=== PATIENT | female | born 1995 | race Caucasian/White ===

== ENCOUNTER 2016-10-13 11:46 | Emergency (ER) | payer OTHER ==
[~2016-10-13] VITALS: Ht 160 cm; Wt 60.7 kg
[2016-10-13 11:57] VITALS: TEMP 37.1; Ht 160 cm; Wt 60.7 kg
[2016-10-13 13:43] LABS: BASO % 0.3 %; BASO ABS # 0.02 K/uL (0-0.2); COMPLETE YES; EOS % 3.9 %; HEMATOCRIT 37.3 % (37-47); IG% 0.2 %; LYMPH % 25.3 %; LYMPH ABS # 1.49 K/uL (1.2-3.4); MEAN CELL VOLUME 81.8 fL (80-100); MEAN CORPUSCULAR HEMOGLOBIN 28.7 pg (25-34); MEAN CORPUSCULAR HGB CONC 35.1 g/dl (32-36); MEAN PLATELET VOLUME 10.7 fL (7.4-10.4); MONO % 15.6 %; NEUT % 54.7 %; PLATELET COUNT 231 K/uL (130-400); RED BLOOD COUNT 4.56 M/uL (4.2-5.4); WHITE BLOOD COUNT 5.89 K/uL (4.8-10.8)
--- NOTE | 2016-10-13 13:44 | DIAGNOSTIC IMAGING REPORT ---
SINGLE VIEW CHEST CLINICAL HISTORY: Cough. Flu. FINDINGS: An AP, portable, upright chest radiograph is obtained. No prior studies are available for comparison at the time of dictation. The cardiomediastinal silhouette is unremarkable. The lungs and pleural spaces are clear. No pneumothorax is seen. The bony thorax is grossly intact. IMPRESSION: No active disease in the chest. Electronically signed by: Dallas Castellanos M.D. 10/13/2016 1:42 PM Dictated Date/Time: 10/13/2016 1:42 PM
[2016-10-13 14:05] LABS: BUN/CREATININE RATIO 9.8 (10-20); CALCIUM 9.1 mg/dl (8.5-10.1); CREATININE 0.73 mg/dl (0.60-1.20); POTASSIUM 4.1 mmol/L (3.5-5.1)
[2016-10-13] MEDS ORDERED: ACET-1256 PO (14:19)
[2016-10-13] MEDS ORDERED: AFRINWC (14:19)
[2016-10-13] MEDS ORDERED: KETOROLAC TROMETHAMINE 30 MG/ML VIAL IV STA (14:43)
[2016-10-13 14:44] VITALS: BP 107/64; PULSE 67; O2SAT 100
--- NOTE | 2016-10-13 20:41 | EMERGENCY ROOM VISIT NOTE ---
History Report prepared by Nasreenibrickey: Jose F Parsons Under the Supervision of: Dr. Woodrow Sosa D.O. First contact with patient: 13:04 Chief Complaint: FLU LIKE SX Stated Complaint: FLU, HEADACHE,BURN IN THROAT AND NOSE History of Present Illness The patient is a 21 year old female who presents to the Emergency Room with complaints of a worsening headache for the past two days. The patient has had the headache all week, which became severe two days ago. She also complains of fatigue, rhinorrhea, sore throat, and nausea. Patient denies change in vision, fevers, cough, chest pain, shortness of breath, vomiting, diarrhea, pain with urination, and melena. The patient is up to date with her immunizations. Over the counter medications have not helped her symptoms. She denies an specific sick contacts, but is a college student at [employer]. The patient was seen by [email or web address] twice for these symptoms, and was told to come to the ED if her symptoms worsen. LNMP was last week. She is diagnosed at [facility] with influenza. Source of History: patient Onset: two days Position: head Symptom Intensity: severe Timing: worsening Associated Symptoms: + fatigue, + nausea, + sorethroat, No SOB, No chest pain, No cough, No diarrhea, No fevers, No melena, No urinary symptoms, No vomiting Review of Systems See HPI for pertinent positives & negatives. A total of 10 systems reviewed and were otherwise negative. Past Medical & Surgical Medical Problems: (1) Closed head injury (2) Pharyngitis Family History Patient reports no known family medical history. Social History Smoking Status: Never Smoker Marital Status: single Occupation Status: student Current/Historical Medications Scheduled Acetaminophen (Tylenol), 500 MG PO DIRECTED Oxymetazoline Hcl (Afrin 0.05% Nasal [place]), 2 SPRAYS NA DIRECTED Allergies Coded Allergies: No Known Allergies (Unverified , 10/13/16) Physical Exam Vital Signs Date Time Temp Pulse Resp B/P Pulse Ox O2 Delivery O2 Flow Rate FiO2 10/13/16 14:44 67 16 107/64 100 Room Air 10/13/16 11:57 37.1 88 16 98 Room Air Physical Exam GENERAL: Sitting up in bed, alert, well appearing, well nourished, no distress, non-toxic EYE EXAM: normal conjunctiva, PERRL and EOM's grossly intact OROPHARYNX: no exudate, no erythema, lips, buccal mucosa, and tongue normal and mucous membranes are moist NECK: supple, no nuchal rigidity, no adenopathy, non-tender, full range of motion. LUNGS: Clear to auscultation. Normal chest wall mechanics HEART: no murmurs, S1 normal and S2 normal ABDOMEN: abdomen soft, non-tender, normo-active bowel sounds, no masses, no rebound or guarding. BACK: Back is symmetrical on inspection and there is no deformity, no midline tenderness, no CVA tenderness. SKIN: no rashes and no bruising UPPER EXTREMITIES: upper extremities are grossly normal. LOWER EXTREMITIES: No pitting edema. NEURO EXAM: Normal sensorium, cranial nerves II-XII grossly intact, normal speech, no gross weakness of arms, no gross weakness of legs. Gross sensation intact. Medical Decision & Procedures ER Provider Diagnostic Interpretation: Xray results per the radiologist and my interpretation. SINGLE VIEW CHEST CLINICAL HISTORY: Cough. Flu. FINDINGS: An AP, portable, upright chest radiograph is obtained. No prior studies are available for comparison at the time of dictation. The cardiomediastinal silhouette is unremarkable. The lungs and pleural spaces are clear. No pneumothorax is seen. The bony thorax is grossly intact. IMPRESSION: No active disease in the chest. Electronically signed by: Dallas Castellanos M.D. 10/13/2016 1:42 PM Dictated Date/Time: 10/13/2016 1:42 PM Laboratory Results 10/13/16 13:30 Red Blood Count 4.56, Mean Corpuscular Volume 81.8, Mean Corpuscular Hemoglobin 28.7, Mean Corpuscular Hemoglobin Concent 35.1, Mean Platelet Volume 10.7, Neutrophils (%) (Auto) 54.7, Lymphocytes (%) (Auto) 25.3, Monocytes (%) (Auto) 15.6, Eosinophils (%) (Auto) 3.9, Basophils (%) (Auto) 0.3, Neutrophils # (Auto ) 3.22, Lymphocytes # (Auto) 1.49, Monocytes # (Auto) 0.92, Eosinophils # (Auto ) 0.23, Basophils # (Auto) 0.02 10/13/16 13:30 Test 10/13/16 13:30 White Blood Count 5.89 K/uL (4.8-10.8) Red Blood Count 4.56 M/uL (4.2-5.4) Hemoglobin 13.1 g/dL (12.0-16.0) Hematocrit 37.3 % (37-47) Mean Corpuscular Volume 81.8 fL (80-100) Mean Corpuscular Hemoglobin 28.7 pg (25-34) Mean Corpuscular Hemoglobin Concent 35.1 g/dl (32-36) Platelet Count 231 K/uL (130-400) Mean Platelet Volume 10.7 fL (7.4-10.4) Neutrophils (%) (Auto) 54.7 % Lymphocytes (%) (Auto) 25.3 % Monocytes (%) (Auto) 15.6 % Eosinophils (%) (Auto) 3.9 % Basophils (%) (Auto) 0.3 % Neutrophils # (Auto) 3.22 K/uL (1.4-6.5) Lymphocytes # (Auto) 1.49 K/uL (1.2-3.4) Monocytes # (Auto) 0.92 K/uL (0.11-0.59) Eosinophils # (Auto) 0.23 K/uL (0-0.5) Basophils # (Auto) 0.02 K/uL (0-0.2) RDW Standard Deviation 39.4 fL (36.4-46.3) RDW Coefficient of Variation 13.1 % (11.5-14.5) Immature Granulocyte % (Auto) 0.2 % Immature Granulocyte # (Auto) 0.01 K/uL (0.00-0.02) Anion Gap 11.0 mmol/L (3-11) Est Creatinine Clear Calc Drug Dose 100.8 ml/min Estimated GFR () 136.5 Estimated GFR (Non- 117.7 BUN/Creatinine Ratio 9.8 (10-20) Calcium Level 9.1 mg/dl (8.5-10.1) Influenza Type A Antigen Neg for Influ A (NEG) Influenza Type B Antigen Neg for Influ B (NEG) Laboratory results per my review. Medications Administered Medications (Trade) Dose Ordered Sig/Shanthi Route Start Time Stop Time Status Last Admin Dose Admin Ketorolac Tromethamine (Toradol Inj) 30 mg NOW STAT IV 10/13/16 14:43 10/13/16 14:44 DC 10/13/16 14:55 30 MG ED Course ED COURSE: Vital signs were reviewed and were normal. The patients medical record was reviewed The above diagnostic studies were performed and reviewed. ED treatments and interventions as stated above. 1311: The patient was evaluated in room C10. A complete history and physical examination was performed. 1443: Toradol 30 mg IV. 1500: Upon reevaluation, the patient is doing well.I discussed my findings with the patient and she understands and agrees with the treatment plan. Based on the patients age, coexisting illnesses, exam and lab findings the decision to treat as an outpatient was made. The patient remained stable while under my care. The patient appeared well at the time of discharge. Medical Decision Differential diagnosis: Etiologies such as viral syndrome, otitis, pharyngitis, pneumonia, influenza, meningitis, urinary tract infection, sepsis, bacteremia, as well as others were entertained. Patient is a 21-year-old female who presents the ER for severe headache associated with a runny nose yellow productive cough and a sore throat. This is been present for the past 48 hours. She was seen at [facility] and diagnosed with influenza. She presents today as her symptoms have not resolved. Chest x- ray was unremarkable. Vitals are stable. No signs of meningitis or encephalitis on exam. No nuchal rigidity. Labs show unremarkable CBC and BMP. Patient was given IV Toradol. Rapid influenza A and B were negative. She is discharged follow-up with her PCP with a viral URI. Discussed with Pt concerning signs and symptoms to watch out for. Pt was instructed to follow up with their PCP and discussed with the patient their option to return to the ED at anytime for persistent or worsening symptoms. The appropriate anticipatory guidance and out-patient management, including indications for return to the emergency department, were explained at length to the patient and understood. Impression Primary Impression: Upper respiratory infection Scribe Attestation The scribe's documentation has been prepared under my direction and personally reviewed by me in its entirety. I confirm that the note above accurately reflects all work, treatment, procedures, and medical decision making performed by me. Departure Information Dispostion Home / Self-Care Referrals No Doctor, Assigned (PCP) Forms HOME CARE DOCUMENTATION FORM, IMPORTANT VISIT INFORMATION Patient Instructions ED URI Viral, My [facility] Additional Instructions Please follow up with your primary care doctor or if you are a student [facility] with in the next 24 hours. Any worsening of your symptoms, please return to the ED immediately. This includes persistent fevers greater than 100.4, stiff neck, confusion, trouble breathing, or any other concerning signs or symptoms from your stand point. Please take Motrin Tylenol as need for pain. Problem Qualifiers Primary Impression: Upper respiratory infection URI type: unspecified viral URI Qualified Codes: J06.9 - Acute upper respiratory infection, unspecified; B97.89 - Other viral agents as the cause of diseases classified elsewhere
== END 2016-10-13 15:29 | disposition home or self-care (01) ==
LOC: C.EDB 11:47 → C.EDC 15:29
DX: J06.9 Acute upper respiratory infection, unspecified (principal); B97.89 Other viral agents as the cause of diseases classified elsewhere

== ENCOUNTER 2017-04-27 11:18 | Emergency (ER) | payer OTHER ==
[~2017-04-27] VITALS: Ht 162.6 cm; Wt 58.9 kg
[~2017-04-27 11:18] MED LIST: ACET-1256 PO; AFRINWC
[2017-04-27 11:22] VITALS: BP 103/71; PULSE 62; TEMP 36.3; O2SAT 98; Ht 162.6 cm; Wt 58.9 kg
[2017-04-27] MEDS ORDERED: ERYOPO OPL ×2 (12:02→12:06)
--- NOTE | 2017-05-01 06:13 | EMERGENCY ROOM VISIT NOTE ---
ED Visit Note First contact with patient: 11:40 Chief Complaint: My left eye is infected. History of Present Illness: Ms. Hammond is a 22-year-old female who ambulates into the ED accompanied by male friend complaining of left upper eyelid infection. Patient reports last evening she had eyelash extensions placed on her eyes. When she awoke this morning she reported that her left eyelid was red, swollen and painful. Since that time her pain has been constant. She describes her pain as a combination of stinging and throbbing. She rates her discomfort 4/ 10. Her pain is nonradiating. Her pain worsens with palpation. She has not identified any alleviating factors related to the pain. She has not taken medications for pain prior to arrival at the hospital. She denies any associated fevers, chills, sweats, other skin eruptions, other skin color changes, headache, visual changes, eye drainage, floaters, flashing lights. Review of Systems: As noted above in history of present illness. Past Medical History: Patient denies. Current Medications: Patient denies. Allergies to Medications: Patient denies. Social History: Patient is University student; she feels safe in her home environment; she denies tobacco and alcohol use. Physical Examination: Vital Signs: Date Time Temp Pulse Resp B/P (MAP) Pulse Ox O2 Delivery O2 Flow Rate FiO2 04/27/17 11:22 36.3 62 20 103/71 98 Room Air GENERAL: 22-year-old female in mild distress due to pain, nontoxic-appearing, afebrile and hemodynamically stable. NEUROLOGICAL: Awake, alert and oriented to person, place and time. Answering questions appropriately and following commands. SKIN: Warm, dry and pink. HEENT: Atraumatic and normocephalic. Face: Left upper eyelid is mildly erythematous and edematous at its base around the eyelashes. No drainage is noted in this area. PERRLA. EOMI. Sclera white and conjunctiva pink. No foreign bodies were noted under the eyelids are embedded in the cornea. Anterior chamber is clear. Slit lamp examination with staining shows no corneal abrasions/defects. Visual acuity: Right: 20/25 without correction, Left : 20/30 without correction. No drainage from naris. ED Course: Patient is assessed as noted above. Patient's medication list was reviewed. Patient was educated about today's findings and instructed on her treatment plan ; she verbalized understanding and agreement with this plan. Clinical Impression: Left upper eyelid infection. Disposition: A shunt discharged home in stable condition accompanied by male friend; prior to departure she was reassessed and subjectively reported that she was pain-free. Plan: Patient was encouraged to alternate ibuprofen and acetaminophen as needed for pain. Ice was encouraged for pain and swelling also. Patient was prescribed erythromycin ophthalmic ointment and encouraged to use a half-inch under her left eyelid 4 times a day for 5 days. Patient was encouraged to follow-up with [facility] or return to the ED for recheck in 36-48 hours. Patient was encouraged return the ED sooner for increasing swelling this, increasing redness, puslike drainage, fevers, visual changes, or any new/ concerning symptoms.
== END 2017-04-27 12:14 | disposition home or self-care (01) ==
LOC: C.EDB 11:20 → C.EDD 12:14
DX: H01.9 Unspecified inflammation of eyelid (principal)